=== PATIENT | male | born 1960 | race Caucasian/White ===

== ENCOUNTER → 2022-01-22 | Outpatient (CLI) | payer BC ==
--- NOTE | 2022-01-22 20:27 | US ---
EXAMINATION TYPE: US kidneys/renal and bladder DATE OF EXAM: 01/22/2022 COMPARISON: NONE CLINICAL HISTORY: R94.4 ABN RESULTS OF KIDNEY FUNCTION TESTS. EXAM MEASUREMENTS: Right Kidney: 10.7 x 5.3 x 5.6 cm Left Kidney: 10.0 x 4.9 x 4.6 cm Right Kidney: 2.8 x 3.5 x 2.7cm cystic area lateral inferior pole Left Kidney: wnl Bladder: wnl Bilateral Jets seen: yes There is no evidence for hydronephrosis at this point in time. No nephrolithiasis is seen. No jose s are identified. The urinary bladder is anechoic. Bilateral ureteral jets are seen. IMPRESSION: 1. No evidence of obstructive uropathy. 2. Right renal cyst.
== END | disposition home or self-care (01) ==
LOC: RADUSWWP 16:14
PROVIDERS: ATTEND Family Medicine
DX: N28.1 Cyst of kidney, acquired (principal); R94.4 Abnormal results of kidney function studies
CPT/HCPCS: 76770